=== PATIENT | female | born 1965 | race Caucasian/White ===

== ENCOUNTER 2019-08-24 06:55 | Emergency (ER) | payer OTHER, BC ==
[~2019-08-24] VITALS: Ht 160 cm; Wt 96.6 kg
[2019-08-24 06:55] VITALS: BP 168/98
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
--- NOTE | 2019-08-24 07:12 | NUR ---
Pt report given to FARZAD HUITRON. Transfer of care at this time.
--- NOTE | 2019-08-24 07:19 | NUR ---
[place] [facility] AT BEDSIDE
[2019-08-24] MEDS ORDERED: ACETAMINOPHEN 325 MG TAB PO ONE (07:30)
--- NOTE | 2019-08-24 07:38 | NUR ---
[facility]RAY AT BEDSIDE TAKING PT VIA WHEELCHAIR
--- NOTE | 2019-08-24 08:00 | NUR ---
PT BEDSIDE FROM XRAY VIA WHEELCHAIR
[2019-08-24 08:33] VITALS: BP 124/87
== END 2019-08-24 08:33 | disposition home or self-care (01) ==
LOC: MED 06:55
DX: S20.212A Contusion of left front wall of thorax, initial encounter (principal); E07.9 Disorder of thyroid, unspecified; Z90.49 Acquired absence of other specified parts of digestive tract; Z98.890 Other specified postprocedural states; V89.2XXA Person injured in unspecified motor-vehicle accident, traffic, initial encounter; Y93.89 Activity, other specified; Y92.488 Other paved roadways as the place of occurrence of the external cause; Y99.8 Other external cause status
CPT/HCPCS: 71046; 99283